=== PATIENT | female | born 1955 | race Caucasian/White ===

== ENCOUNTER 2020-03-09 21:19 | Emergency (ER) | payer BC ==
[~2020-03-09] VITALS: Ht 165.1 cm; Wt 49.5 kg
[2020-03-09] MEDS ORDERED: LORAZEPAM1 M1 PO (21:38)
[2020-03-09] MEDS ORDERED: MELATONIN1 MG PO (21:38)
[2020-03-09] MEDS ORDERED: ZYRTEC10 M3 PO (21:39)
[2020-03-09] MEDS ORDERED: SINGULAIR PO (21:39)
[2020-03-09] MEDS ORDERED: FLONASE ALLERG9.9 ML NS (21:39)
[2020-03-09 22:30] LABS: BASO # 0.1 (0.02-0.10); EOS # 0.1 (0.04-0.40); EOS % 2.8 % (1.0-5.0); HEMOGLOBIN 12.9 g/dL (12.5-16.0); LYMPH# 0.7 (1.50-4.00); MEAN CELL VOLUME 95 fl (78-100); MEAN CORPUSCULAR HEMOGLOBIN 31 pg (27-31); MEAN CORPUSCULAR HGB CONC 32 g/dL (33-37); MEAN PLATELET VOLUME 9.7 fl (7.4-10.4); MONO # 0.6 (0.20-0.80); NEU # 3.6 (1.40-6.50); PLATELET COUNT 201 K/mm3 (130-400); RED BLOOD COUNT 4.23 M/mm3 (4.10-5.30); RED CELL DISTRIBUTION WIDTH 12.2 % (11.5-14.5)
[2020-03-09 22:40] LABS: ALBUMIN 3.9 g/dL (3.4-4.8); POTASSIUM 3.8 mmol/L (3.5-5.1); SODIUM 142 mmol/L (136-145)
[2020-03-09 22:41] LABS: CALCIUM 9.2 mg/dL (8.3-10.5)
[2020-03-09 22:43] LABS: GLUCOSE 121 mg/dL (65-105); TOTAL PROTEIN 6.5 g/dL (6.2-8.1)
[2020-03-09 22:44] LABS: CARBON DIOXIDE 26 mmol/L (23-31); TOTAL BILIRUBIN 0.2 mg/dL (0.2-1.2)
[2020-03-09 22:45] LABS: D-DIMER 0.75 mg/L FEU (0.15-0.50)
[2020-03-09 22:48] LABS: AST-SGOT 13 U/L (5-34)
[2020-03-09 22:49] LABS: ALT/SGPT 17 U/L (0-55)
[2020-03-09 22:55] LABS: TROPONIN-I < 0.03 ng/mL (<0.030)
[2020-03-10] MEDS ORDERED: AUGMENTIN 875-1 EAC1 PO (00:20)
[2020-03-10 00:46] VITALS: BP 124/75
== END 2020-03-10 00:46 | disposition home or self-care (01) ==
LOC: ED 21:19
PROVIDERS: Nurse Practitioner Family
DX: J47.9 Bronchiectasis, uncomplicated (principal); J43.9 Emphysema, unspecified; J45.909 Unspecified asthma, uncomplicated; F41.9 Anxiety disorder, unspecified; F32.9 Major depressive disorder, single episode, unspecified; Z20.828 Contact with and (suspected) exposure to other viral communicable diseases; Z90.710 Acquired absence of both cervix and uterus; Z85.3 Personal history of malignant neoplasm of breast; Z79.51 Long term (current) use of inhaled steroids; Z79.52 Long term (current) use of systemic steroids; Z77.22 Contact with and (suspected) exposure to environmental tobacco smoke (acute) (chronic)
CPT/HCPCS: J2060; Q9967

== ENCOUNTER 2020-08-03 08:23 | Outpatient (RCR) | payer MEDICARE ==
[~2020-08-03 08:23] MED LIST: AUGMENTIN 875-1 EAC1 PO; FLONASE ALLERG9.9 ML NS; LORAZEPAM1 M1 PO; MELATONIN1 MG PO; SINGULAIR PO; ZYRTEC10 M3 PO
== END 2020-08-25 15:50 ==
LOC: OPPGERO 08:23
DX: F41.8 Other specified anxiety disorders (principal); F32.9 Major depressive disorder, single episode, unspecified; C50.919 Malignant neoplasm of unspecified site of unspecified female breast; M47.816 Spondylosis without myelopathy or radiculopathy, lumbar region; M16.0 Bilateral primary osteoarthritis of hip; R21 Rash and other nonspecific skin eruption; J30.2 Other seasonal allergic rhinitis; Z90.710 Acquired absence of both cervix and uterus; Z90.722 Acquired absence of ovaries, bilateral; Z92.21 Personal history of antineoplastic chemotherapy; Z92.3 Personal history of irradiation; Z98.890 Other specified postprocedural states

== ENCOUNTER 2020-08-28 09:23 | Outpatient (RCR) | payer MEDICARE | END 2020-09-22 15:59 | disposition home or self-care (01) | LOC: OPPGERO 09:23 | DX: F41.8 Other specified anxiety disorders (principal); R45.851 Suicidal ideations; M16.0 Bilateral primary osteoarthritis of hip; J30.2 Other seasonal allergic rhinitis; Z90.710 Acquired absence of both cervix and uterus; Z98.890 Other specified postprocedural states; Z90.722 Acquired absence of ovaries, bilateral; Z92.3 Personal history of irradiation; Z92.21 Personal history of antineoplastic chemotherapy ==

== ENCOUNTER 2020-09-26 10:04 | Outpatient (RCR) | payer MEDICARE | END 2020-10-25 15:34 | disposition home or self-care (01) | LOC: OPPGERO 10:04 | DX: F33.1 Major depressive disorder, recurrent, moderate (principal); F41.1 Generalized anxiety disorder; Z92.3 Personal history of irradiation; Z98.890 Other specified postprocedural states; Z92.21 Personal history of antineoplastic chemotherapy; Z90.710 Acquired absence of both cervix and uterus; Z90.722 Acquired absence of ovaries, bilateral ==

== ENCOUNTER 2020-10-26 09:34 | Outpatient (RCR) | payer MEDICARE ==
[2020-11-06] MEDS ORDERED: REMERON15 MG PO (12:17)
[2020-11-06] MEDS ORDERED: ZOFRAN ODT4 MG PO (12:42)
[2020-11-06] MEDS ORDERED: ATIVAN0.5 MG PO (12:42)
== END 2020-11-24 22:29 | disposition home or self-care (01) ==
LOC: OPPGERO 09:34
DX: F33.1 Major depressive disorder, recurrent, moderate (principal); F41.1 Generalized anxiety disorder; Z90.710 Acquired absence of both cervix and uterus; Z98.890 Other specified postprocedural states; Z90.722 Acquired absence of ovaries, bilateral; Z83.3 Family history of diabetes mellitus

== ENCOUNTER 2020-11-06 10:10 | Emergency (ER) | payer MEDICARE ==
[2020-11-06 10:50] LABS: ALBUMIN 4.2 g/dL (3.4-4.8); POTASSIUM 3.5 mmol/L (3.5-5.1); SODIUM 140 mmol/L (136-145); URINE APPEARANCE CLEAR; URINE BILIRUBIN NEGATIVE (NEGATIVE); URINE BLOOD NEGATIVE (NEGATIVE); URINE COLOR YELLOW; URINE GLUCOSE NEGATIVE (NEGATIVE); URINE KETONE NEGATIVE (NEGATIVE); URINE LEUKOCYTE ESTERASE NEGATIVE (NEGATIVE); URINE NITRATE NEGATIVE (NEGATIVE); URINE PROTEIN(semi-quant) NEGATIVE (NEGATIVE); URINE UROBILINOGEN NORMAL (NORMAL); URINE WBC 0-1 /hpf (0-3)
[2020-11-06 10:51] LABS: CALCIUM 8.6 mg/dL (8.3-10.5)
[2020-11-06 10:52] LABS: GLUCOSE 94 mg/dL (65-105)
[2020-11-06 10:53] LABS: BASO # 0.06 (0.02-0.10); CARBON DIOXIDE 25 mmol/L (23-31); EOS # 0.05 (0.04-0.40); HEMATOCRIT 41.7 % (37.0-47.0); HEMOGLOBIN 14.1 g/dL (12.5-16.0); LYMPH# 0.77 (1.50-4.00); MEAN CELL VOLUME 91 fl (78-100); MEAN CORPUSCULAR HEMOGLOBIN 31 pg (27-31); MEAN CORPUSCULAR HGB CONC 34 g/dL (33-37); MEAN PLATELET VOLUME 9.3 fl (7.4-10.4); MONO # 0.36 (0.20-0.80); NEU # 3.87 (1.40-6.50); PARTIAL THROMBOPLASTIN TIME 22.6 SECONDS (21.0-32.0); PLATELET COUNT 238 K/mm3 (130-400); PROTHROMBIN TIME 9.4 SECONDS (9.0-12.0); RED BLOOD COUNT 4.56 M/mm3 (4.10-5.30); RED CELL DISTRIBUTION WIDTH 12.9 % (11.5-14.5); WHITE BLOOD COUNT 5.1 K/mm3 (4.8-10.8)
[2020-11-06 10:54] LABS: TOTAL BILIRUBIN 0.6 mg/dL (0.2-1.2)
[2020-11-06 10:58] LABS: AST-SGOT 15 U/L (5-34)
[2020-11-06 10:59] LABS: ALT/SGPT 16 U/L (0-55); LIPASE 34 U/L (8-78)
[2020-11-06 11:07] LABS: TROPONIN-I < 0.03 ng/mL (<0.030)
[2020-11-06] MEDS ORDERED: REMERON15 MG PO (12:17)
[2020-11-06] MEDS ORDERED: ZOFRAN ODT4 MG PO (12:42)
[2020-11-06] MEDS ORDERED: ATIVAN0.5 MG PO (12:42)
[2020-11-06 12:50] VITALS: BP 112/62
== END 2020-11-06 12:47 | disposition home or self-care (01) ==
LOC: ED 10:10
PROVIDERS: Nurse Practitioner
DX: F41.9 Anxiety disorder, unspecified (principal); F32.9 Major depressive disorder, single episode, unspecified; J45.909 Unspecified asthma, uncomplicated; Z79.899 Other long term (current) drug therapy

== ENCOUNTER 2020-11-27 05:02 | Outpatient (RCR) | payer MEDICARE ==
[~2020-11-27 05:02] MED LIST changes: +ATIVAN0.5 MG PO; +REMERON15 MG PO; +ZOFRAN ODT4 MG PO
== END 2020-12-26 15:54 | disposition home or self-care (01) ==
LOC: OPPGERO 05:02
DX: F33.1 Major depressive disorder, recurrent, moderate (principal); F41.1 Generalized anxiety disorder; C50.911 Malignant neoplasm of unspecified site of right female breast; H04.129 Dry eye syndrome of unspecified lacrimal gland; M47.816 Spondylosis without myelopathy or radiculopathy, lumbar region; M16.0 Bilateral primary osteoarthritis of hip; Z92.21 Personal history of antineoplastic chemotherapy; Z92.3 Personal history of irradiation; Z98.890 Other specified postprocedural states; Z90.710 Acquired absence of both cervix and uterus; Z90.721 Acquired absence of ovaries, unilateral; Z87.59 Personal history of other complications of pregnancy, childbirth and the puerperium; Z83.3 Family history of diabetes mellitus

== ENCOUNTER 2020-12-27 16:03 | Outpatient (RCR) | payer MEDICARE | END 2021-01-25 13:54 | disposition home or self-care (01) | LOC: OPPGERO 16:03 | DX: F41.1 Generalized anxiety disorder (principal); F33.1 Major depressive disorder, recurrent, moderate; Z90.710 Acquired absence of both cervix and uterus; Z90.721 Acquired absence of ovaries, unilateral; Z87.59 Personal history of other complications of pregnancy, childbirth and the puerperium; Z98.890 Other specified postprocedural states; Z83.3 Family history of diabetes mellitus; Z92.3 Personal history of irradiation; Z92.21 Personal history of antineoplastic chemotherapy ==

== ENCOUNTER 2021-01-26 13:03 | Outpatient (RCR) | payer MEDICARE | END 2021-02-25 18:04 | disposition home or self-care (01) | LOC: OPPGERO 13:03 | DX: F33.1 Major depressive disorder, recurrent, moderate (principal); F41.1 Generalized anxiety disorder; Z98.890 Other specified postprocedural states; Z90.710 Acquired absence of both cervix and uterus; Z87.59 Personal history of other complications of pregnancy, childbirth and the puerperium; Z92.21 Personal history of antineoplastic chemotherapy; Z92.3 Personal history of irradiation ==

== ENCOUNTER 2021-02-26 09:29 | Outpatient (RCR) | payer MEDICARE | END 2021-03-27 16:43 | LOC: OPPGERO 09:29 | DX: F41.1 Generalized anxiety disorder (principal); F32.9 Major depressive disorder, single episode, unspecified ==